=== PATIENT | female | born 1935 | race Caucasian/White ===

== ENCOUNTER 2023-06-14 19:20 | Emergency (ER) | payer MEDICARE ==
[~2023-06-14] VITALS: Ht 149.9 cm; Wt 45.4 kg
[2023-06-14 19:29] VITALS: TEMP 98.2
[2023-06-14] MEDS ORDERED: ACET-2605 PO (23:07)
[2023-06-15 01:13] VITALS: BP 138/65; O2SAT 98
== END 2023-06-15 01:14 ==
LOC: ER 19:52
DX: S52.515A Nondisplaced fracture of left radial styloid process, initial encounter for closed fracture (principal); S09.90XA Unspecified injury of head, initial encounter; M19.032 Primary osteoarthritis, left wrist; I11.0 Hypertensive heart disease with heart failure; I50.9 Heart failure, unspecified; Z88.0 Allergy status to penicillin; Z88.8 Allergy status to other drugs, medicaments and biological substances; W01.0XXA Fall on same level from slipping, tripping and stumbling without subsequent striking against object, initial encounter; Y93.89 Activity, other specified; Y92.89 Other specified places as the place of occurrence of the external cause; Y99.8 Other external cause status
CPT/HCPCS: 29125; 70450; 71045; 72170; 73030; 73080; 73110; 99284; L3763